=== PATIENT | male | born 1955 | race Caucasian/White ===

== ENCOUNTER → 2020-02-27 | Day surgery (SDC) | payer BC ==
[2020-02-22 11:15] VITALS: BMI 37.8
[~2020-02-27] MED LIST: ALPRAZolam 0.25 MG TAB PO PRN; ALPRAZolam 0.5 MG TAB PO PRN; ASPIRIN 325 MG TAB PO STA; ASPIRIN 81 MG PO SCH; ATORVASTATIN 10 MG TAB PO SCH; ATROPINE SULFATE 0.1 MG/ML 10ML SYRINGE IV PRN; CLOPIDOGREL 75 MG TAB ONE; CLOPIDOGREL 75 MG TAB PO ONE; CLOPIDOGREL 75 MG TAB PO SCH; GLIMEPIRIDE 2 MG TAB PO SCH; HEPARIN SODIUM 1,000 UN/ML (10ML VL) ONE; IOPAMIDOL-370 125ML BTL INJ ONE; IOPAMIDOL-370 50ML BTL INJ ONE; LIDOCAINE 1% INJ 10MG/ML (20 ML MDV) ONE; LIDOCAINE 1% INJ 10MG/ML (20 ML MDV) SQ ONE; MAG HYDROX/AL HYDROX/SIMETH 30 ML CUP PO PRN; NITROGLYCERIN 1000MCG/10ML SYRINGE INTRACORON ONE; NITROGLYCERIN SL TABS 0.4 MG TAB SUBLINGUAL PRN; NON FORMULARY DRUG (Carvedilol [Coreg] 25 MG Tablet) PO SCH; NON FORMULARY DRUG (Dulaglutide [Trulicity] 1.5 MG/0.5 ML Pen.Injctr) SQ SCH; NON FORMULARY DRUG (Ertugliflozin Pidolate [Steglatro] 15 MG Tablet) PO SCH; NON FORMULARY DRUG (Insulin Degludec [Tresiba] 100 UNIT/ML Vial) SQ SCH; NON FORMULARY DRUG (Lisinopril [Lisinopril] 40 MG Tablet) PO SCH; NON FORMULARY DRUG (Omeprazole [Omeprazole] 40 MG Capsule.Dr) PO SCH; ONDANSETRON 4 MG/2 ML VIAL ONE; RX INFO: IV CONTRAST WAS GIVEN 1 EACH MISC MISCELLANE PRN; SODIUM CHLORIDE 0.9% 1,000 ML IV SCH; SODIUM CHLORIDE 0.9% 1,000 ML in EMPTY BAG 1 BAG IV ONE; VERAPAMIL 2.5 MG/ML 2 ML AMP ONE; VERAPAMIL SYRINGE (5 MG/10 ML) INTRAARTER ONE; ZOLPIDEM 5 MG TAB PO PRN; amLODIPine 10 MG TAB PO SCH; fentaNYL (PF) 50 MCG/ML 2 ML AMP IV ONE; fentaNYL (PF) 50 MCG/ML 2 ML AMP ONE
[2020-02-27 06:25] LABS: Glucose,Whole Blood 191 mg/dL (75-99)
[2020-02-27 06:32] VITALS: RESP 18; TEMP 98.5
[2020-02-27 06:48] LABS: Basophils # (A) 0.1 k/uL (0-0.2); Basophils % (A) 1 %; Eosinophils # (A) 0.3 k/uL (0-0.7); Eosinophils % (A) 3 %; HCT 45.8 % (39.0-53.0); HGB 14.9 gm/dL (13.0-17.5); Lymphocytes # (A) 2.1 k/uL (1.0-4.8); Lymphocytes % (A) 21 %; MCH 28.4 pg (25.0-35.0); MCHC 32.6 g/dL (31.0-37.0); MCV 87.2 fL (80.0-100.0); Mean Platelet Volume 8.6; Monocytes # (A) 0.5 k/uL (0-1.0); Monocytes % (A) 5 %; Neutrophils # (A) 6.9 k/uL (1.3-7.7); Neutrophils % (A) 69 %; Platelet Count 254 k/uL (150-450); RBC 5.26 m/uL (4.30-5.90); RDW 13.5 % (11.5-15.5)
[2020-02-27 06:53] LABS: Calcium 9.7 mg/dL (8.4-10.2); Potassium 4.4 mmol/L (3.5-5.1)
[2020-02-27] MEDS: MIDAZOLAM 2 MG/2 ML VIAL IV ONE ×2 (07:57→08:12)
--- NOTE | 2020-02-27 09:30 | CC ---
CARDIAC CATHETERIZATION REPORT Mr. Salguero is a 64-year-old male with a known history of coronary artery disease, status post percutaneous revascularization in 2013, history of hypertension, hyperlipidemia, and diabetes who presented with left arm discomfort, exertion pattern, reminding him of the way he felt prior to his stenting. In view of that, recommendation made regarding cardiac catheterization. The procedures, risks, and complications were discussed with the patient who is in full understanding and agreement. PROCEDURE: Patient was brought to lab aid in a fasting semi-sedated state after receiving fentanyl and Benadryl and achieving moderate conscious sedated state, using Xylocaine anesthesia and Seldinger technique, a 6-Angolan sheath was introduced in the right radial artery. Selective right and left coronary angiography performed using 5- Angolan 3.5 bend right and left Long catheter. Multiple views of the coronary artery including hemiaxial views obtained, the 5-Angolan right Long catheter was used to cross the aortic valve and the left ventricular end-diastolic pressure was calculated. Following that, catheter removed, images were reviewed. FINDINGS: FLUOROSCOPY: There is calcification involving all the coronary arteries. LEFT MAIN: This is a large-sized vessel, bifurcating into left circumflex, left anterior descending artery. Left main coronary artery has no evidence of high- grade stenosis. LEFT ANTERIOR DESCENDING ARTERY: This is a large-sized vessel, tapers down distal third, giving rise to 2 diagonal branches. The stented segment in the proximal and mid LAD is patent, has a 10% to 20%in-stent restenosis. After the stented segment, there is a 99% stenosis. The vessel beyond that has intimal disease without any evidence of high-grade stenosis. LEFT CIRCUMFLEX: This is a nondominant large size vessel, giving rise to a large obtuse marginal branch. The left circumflex has a 20% to 30% plaque in the proximal segment without any evidence of high-grade stenosis. It gives rise to a very proximal small obtuse marginal branch that has no evidence of high-grade stenosis. RIGHT CORONARY ARTERY: This is a large dominant vessel, bifurcating into PDA and posterolateral segment and branches. The right PDA reaches to the inferoapical wall, the right coronary artery is calcified in mid segment, has mild intimal disease without any evidence of high-grade stenosis. LEFT VENTRICULOGRAM: Left ventriculogram was not performed. HEMODYNAMICS: There was no gradient across the aortic valve. The left ventricular end- diastolic pressure was 12-16 mmHg. CONCLUSION: 1. Critical stenosis involving the mid LAD. 2. Mild disease in the left circumflex and the right coronary artery with patent stent in the LAD. RECOMMENDATION: In view of finding anatomy, I recommend proceeding with angioplasty and stenting of the LAD. The procedures, risks, and complication were discussed with the patient who is in full understanding and agreement. MMSYEDA / VENITAN: [id number] / MTDD
--- NOTE | 2020-02-27 09:48 | PTCA ---
PERCUTANEOUSTRANS CORORONARY ANGIOGRAPHY Mr. Salguero is a 64-year-old male with known history of coronary artery disease, hypertension, hyperlipidemia, diabetes mellitus, who has been complaining of exertional left arm discomfort, underwent cardiac catheterization, was found to have significant obstructive disease involving the mid LAD. In view of that, recommendation made regarding angioplasty and stenting, the procedures, risks, and complications were discussed with the patient who is in full understanding and agreement. PROCEDURE: A 6-Czech FL 3.5 guiding catheter introduced into the system after cannulated the left main. A 0.014 balanced medium weight J-wire was advanced across the lesion, positioned distally, then a 2.25 x 12 mm Trek balloon was advanced and multiple inflations at maximum of 8 atmospheres were done. Following that, the balloon was removed and a 2.25 x 15 mm Xience Disha stent was deployed, post dilated to 16 atmospheres. After the last inflation, after appropriate wait, the balloon and the guidewire were withdrawn back in the guiding catheter. Images were obtained and repeated. Those images reveal stable successful stenting. At that point, the guiding catheter, the balloon and the guidewire were removed. The sheath was removed, hemostasis was obtained with deployment of a TR band. There was no immediate complication. Patient was returned to his room in stable condition. Of note, the patient complained of left arm discomfort that resolved at the end of the procedure. He had no significant EKG changes. He received a total of 8000 units of intravenous heparin and his AT was followed. He also received intra-arterial verapamil. RESULTS: Successful stenting of the mid LAD with reduction of stenosis from 99% to 0%. RECOMMENDATION: Patient will be continued on aspirin, Plavix, beta tavia, and statin. The importance of dual antiplatelet treatment were discussed with the patient and his family and they are in full understanding and agreement. Duration of sedation is 34 minutes. MMODL / IJN: [id number] /
--- NOTE | 2020-02-27 09:54 | LTR ---
DATE OF SERVICE: 02/27/2020 RE: Jhonatan Salguero Dear Dr. Phillips; I had the pleasure to perform cardiac catheterization and coronary angioplasty and stenting on Mr. Salguero at [facility] on February 27, 2020 and a full copy of the procedure note will be forwarded to you. In brief, he was found to have critical stenosis involving the mid LAD artery and underwent successful stenting of that vessel using a drug-eluting stent. I am hopeful that this procedure will stabilize his status and I would recommend to continue dual antiplatelet treatment for 1 year without any interruption. Thank you again for allowing me to participate in this patient's personal care. Please feel free to call for any questions. Sincerely yours, MD RUPAL BuchananL / VENITAN: [id number] / JOSE J
[2020-02-27 15:00] VITALS: BP 118/67; PULSE 62
== END | disposition home or self-care (01) ==
LOC: CATHCVL 06:04
PROVIDERS: ATTEND Internal Medicine Interventional Cardiology
DX: I25.110 Atherosclerotic heart disease of native coronary artery with unstable angina pectoris (principal); T82.855A Stenosis of coronary artery stent, initial encounter; I25.84 Coronary atherosclerosis due to calcified coronary lesion; I10 Essential (primary) hypertension; E78.2 Mixed hyperlipidemia; E11.9 Type 2 diabetes mellitus without complications; Z88.5 Allergy status to narcotic agent
CPT/HCPCS: 93458; 80048; 85025; C9600; C1769 ×2; C1887; C1725; C1874; C1894; J2250; J2001; J3010; J1644; Q9967 ×2